=== PATIENT | male | born 1940 | race Caucasian/White ===

== ENCOUNTER 2016-06-26 08:58 | Day surgery (SDC) | payer MEDICARE ==
--- NOTE | ~2016-06-26 | OP ---
Record Of Operation [facility] [address] [place]. [address] NAME: ELLIOT FITCH JR : 44 STATUS : [facility]#: [id number] AGE: 76 ADM/REG DATE : 06/26/16 MR#: [id number] REPORT SERV DATE: 06/26/16 DICTATED BY: JIGAR PARRA JR. DATE: 06/26/16 REPORT STATUS : Draft TRANSCRIBED BY: MODKulwant DATE: 06/26/16 DATE OF PROCEDURE: 06/26/2016 PREOPERATIVE DIAGNOSIS: Right ureteral stone with hydronephrosis. POSTOPERATIVE DIAGNOSIS: Right ureteral stone with hydronephrosis. PROCEDURES PERFORMED: Cystoscopy, bilateral retrograde pyelogram, dilation of right distal ureter, right ureteroscopy with laser ablation of right ureteral stone, and double-J stent placement. COMPLICATIONS: None. CONSULTATIONS: None. ANESTHESIA: General with an endotracheal tube. SPECIMENS: None. DRAINS: 6 x 26 cm double-J stent. ESTIMATED BLOOD LOSS: None. INDICATION: Mr. Fitch is a 76-year-old gentleman who comes today for a right ureteral stone causing significant degree of obstruction. The stone appears to be at the UPJ on the right side based on the ultrasound imaging. This was outside imaging and we do not have that imaging here at the hospital today. There were no reports on the chart as well. My office notes read as right ureteral stone; however, the consent was written as left ureteral stone. I simply left the consent in place and planned on doing bilateral retrogrades. The patient was under the impression that we would perform the procedure on the side the stone was located once we were in surgery and we were able to identify it. He did not have any significant pain on either side. PROCEDURE IN DETAIL: After the patient was identified and proper informed consent was obtained, he was taken to the operating room. General anesthesia was performed without complication using an endotracheal tube. He was then prepped and draped in a normal sterile fashion in the low lithotomy position. Cystoscopic examination of the urethra and bladder were found to be normal. Both ureteral orifices were identified. Left retrograde pyelogram was performed first, which revealed normal course to the ureter up to the pelvic inlet. He then had some dilation of the ureter up to the renal pelvis with mild hydronephrosis, but there were no filling defects to suggest the stone. I then performed the right retrograde pyelogram, which revealed an obvious defect in the distal portion of the upper ureter just as the ureter entered into the pelvic inlet at the iliac vasculature. I was unable to get any contrast to go beyond this area. I then attempted to place the guidewire, 035 [address]; however, this was not successful. A 035 [address]runner, however, with some manipulation, was passed successfully around the stone into the renal pelvis. I then performed a rigid Record Of Operation [address] [place]. [address] NAME: ELLIOT FITCH JR : 44 STATUS : [facility] PAT#: [id number] AGE: 76 ADM/REG DATE : 06/26/16 MR#: [id number] REPORT SERV DATE: 06/26/16 DICTATED BY: JIGAR PARRA JR. DATE: 06/26/16 REPORT STATUS : Draft TRANSCRIBED BY: JAYLEN DATE: 06/26/16 ureteroscopy after dilating the distal ureter to an 11-Argentine using an access sheath. I then visualized the stone; however, with great difficulty. There was a lot of edema distal to the stone as it was pushing trying to get over the iliac vasculature. I was able to see the wire going around the stone without submucosal injury. I then advanced a 400 micron Holmium laser fiber up to the stone and by inverting the ureteroscope, I was able to fragment one edge of the stone along the guidewire, but I was still unable to get a good passage around the stone to place the stent. I then removed the rigid ureteroscope placing a flexible ureteroscope. I was able to get some better angles on the stone and eventually cracked the stone into multiple pieces. Some of these pieces were fragmented; however, with the edema and ureteral ulceration from the stone, I did not feel comfortable continuing at that point; I was concerned more about ureteral stricture and ureteral perforation; I decided to stop the procedure at that point and placed a double-J stent now that I had a nice passageway up to the upper ureter. I removed the ureteroscope and several stone fragments came out with the scope. I then deployed a 6 x 26 cm double-J stent with a nice curl in both the bladder and the kidney. The bladder was drained. The patient was awakened in the operating room and transferred to the postanesthesia care unit in stable condition. I will plan a repeat ureteroscopy in approximately two weeks after the ureter has had some time to heal. STAN/JAYLEN Jigar Parra Jr., M.D. / [id number] CC: Jose Cruz Scruggs Jr., M.D.
[~2016-06-26 08:58] MED LIST: CARDURA8 MG PO; EFFEXOR100 MG PO; EYE VITAMIN; FISH OIL1200 MG PO; FLOMAX4 PO; HALF81 PO; LEVOTHYROXIN25 MCG PO; LIPITOR20 PO; MOBIC15 MG PO; MVI PO; PCET PO; PRAVACHOL40 MG PO; PROSCAR5 PO; REQUIP1 PO; REQUIP2 PO; UTA OR; VITAMIN B-121000 MC1 SL
[2016-06-26 09:28] LABS: HEMOGLOBIN 13.3 g/dL (13.6-17.8)
== END 2016-06-26 16:51 | disposition home or self-care (01) ==
LOC: SDC 08:58
PROVIDERS: Urology
PROC: 0T768DZ Dilation of Right Ureter with Intraluminal Device, Via Natural or Artificial Opening Endoscopic (ICD-10-PCS; 2016-06-26)
PROC: BT141ZZ Fluoroscopy of Kidneys, Ureters and Bladder using Low Osmolar Contrast (ICD-10-PCS; 2016-06-26)
PROC: 0TF68ZZ Fragmentation in Right Ureter, Via Natural or Artificial Opening Endoscopic (ICD-10-PCS; principal; 2016-06-26 11:00)
DX: N13.2 Hydronephrosis with renal and ureteral calculous obstruction (principal); G47.33 Obstructive sleep apnea (adult) (pediatric); E78.00 Pure hypercholesterolemia, unspecified; E78.5 Hyperlipidemia, unspecified; E03.9 Hypothyroidism, unspecified; E66.01 Morbid (severe) obesity due to excess calories; Z68.36 Body mass index [BMI] 36.0-36.9, adult; Z91.19 Patient's noncompliance with other medical treatment and regimen; Z88.1 Allergy status to other antibiotic agents; Z88.2 Allergy status to sulfonamides; Z91.048 Other nonmedicinal substance allergy status; Z79.82 Long term (current) use of aspirin; Z79.899 Other long term (current) drug therapy
CPT/HCPCS: 74420; 85014; 85018; 93005; C1758; C1769; C2617; J2250; J2405; J2710; J3010; Q9967

== ENCOUNTER 2016-07-10 08:14 | Day surgery (SDC) | payer MEDICARE ==
--- NOTE | ~2016-07-10 | OP ---
Record Of Operation [facility] [address] [place]. [address] NAME: ELLIOT FITCH JR : 44 STATUS : [facility] PAT#: [id number] AGE: 76 ADM/REG DATE : 07/10/16 MR#: [id number] REPORT SERV DATE: 07/10/16 DICTATED BY: JIGAR PARRA JR. 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 PROCEDURE PERFORMED: Cystoscopy, right retrograde pyelogram, and right ureteroscopy with replacement of double-J stent. COMPLICATIONS: None. CONSULTATIONS: None. ANESTHESIA: General with a laryngeal mask airway. SPECIMENS: None. DRAINS: None. ESTIMATED BLOOD LOSS: None. INDICATION: Mr. Fitch is a 76-year-old gentleman, who was noted to have a large greater than 1 cm stone at the level of the pelvic inlet. He had a very difficult ureteroscopy with a fair amount of ureteral trauma from the stone being present so long and the obstruction being at such a high degree. I was able to fragment the stone at that time and placed a double-J stent. There was some concern due to the location of the stone fragments that there may have been some pieces left behind. There was also some concern of ureteral stenosis after the procedure due to the stone being impacted at the location and which it was. He comes back today for a second-look procedure. PROCEDURE IN DETAIL: After the patient was identified and proper informed consent was obtained, he was taken to the operating room. General anesthesia was performed without complication using a laryngeal mask airway. He was then prepped and draped in normal sterile fashion in the lithotomy position. Cystoscopic examination of the urethra and bladder were performed. The stent was visualized and removed using grasping forceps, and the retrograde pyelogram was performed using a 5-Swedish open-ended catheter. The ureteral lumen in the area of the prior stone was somewhat irregular. There was looked to be possibly stenotic. The ureter above this area was still quite dilated along with the renal pelvis. The guidewire was advanced through the open-ended catheter up to the renal pelvis and flexible ureteroscopy was performed to this area. Some photographs were taken of this area of the ureter which was fairly disrupted and the mucosa of the ureter was not healed yet. I was unable to advance the flexible ureteroscope above this area for fear that the ureter may perforate. I simply took some images, removed a few stone fragments that were noted in the distal ureter, and we placed a double-J stent 6 x 26 cm in size. The bladder was drained. The patient was awakened in the operating room and transferred to the [facility] [address] [address] NAME: ELLIOT FITCH JR : 44 STATUS : [facility] PAT#: [id number] AGE: 76 ADM/REG DATE : 07/10/16 MR#: [id number] REPORT SERV DATE: 07/10/16 DICTATED BY: JIGAR PARRA JR. DATE: 07/10/16 REPORT STATUS : Draft TRANSCRIBED BY: JAYLEN DATE: 07/10/16 postanesthesia care unit in stable condition. I will plan to re-ureteroscope him in approximately six weeks. I will see him back in the office in one month for followup and I did give him some more pain medication for management of stent pain. STAN/JAYLEN Jigar Parra Jr., M.D. / [id number] CC: Jose Cruz Scruggs Jr., M.D.
== END 2016-07-10 18:16 | disposition home or self-care (01) ==
LOC: SDC 08:14
PROVIDERS: Urology
PROC: BT1DYZZ Fluoroscopy of Right Kidney, Ureter and Bladder using Other Contrast (ICD-10-PCS; 2016-07-10)
PROC: 0T768DZ Dilation of Right Ureter with Intraluminal Device, Via Natural or Artificial Opening Endoscopic (ICD-10-PCS; principal; 2016-07-10 10:15)
DX: N20.1 Calculus of ureter (principal); G47.33 Obstructive sleep apnea (adult) (pediatric); M19.90 Unspecified osteoarthritis, unspecified site; E03.9 Hypothyroidism, unspecified; F32.9 Major depressive disorder, single episode, unspecified; Z79.82 Long term (current) use of aspirin; Z79.899 Other long term (current) drug therapy; Z88.2 Allergy status to sulfonamides; Z90.89 Acquired absence of other organs
CPT/HCPCS: 74420; A9270-GY; C1758; C1769; C2617; J2370; J2405; J2710; J3010; Q9967